=== PATIENT | male | born 1970 | race African-American/Black ===

== ENCOUNTER 2019-05-03 19:38 | Emergency (ER) | payer SELFPAY ==
[~2019-05-03] VITALS: Ht 177.8 cm; Wt 83.9 kg
--- NOTE | 2019-05-03 20:09 | PHYS DOC ---
Adult General Chief Complaint Chief Complaint: HIP PAIN HPI HPI Patient is a 48 year old male who presents with right groin pain after walking yesterday. The patient states he was walking over a curb and call his toe on the curb and after that he started having right groin pain. Patient states his pain is 10 out of 10 in severity, and has not taken any medicines for this at home. However has been using a cane today to help him walk. Review of Systems Review of Systems Constitutional: Denies fever or chills [] Eyes: Denies change in visual acuity, redness, or eye pain [] HENT: Denies nasal congestion or sore throat [] Respiratory: Denies cough or shortness of breath [] Cardiovascular: No additional information not addressed in HPI [] GI: Denies abdominal pain, nausea, vomiting, bloody stools or diarrhea [] : Denies dysuria or hematuria [] Musculoskeletal: Reports R groin pain after walking. Integument: Denies rash or skin lesions [] Neurologic: Denies headache, focal weakness or sensory changes [] Endocrine: Denies polyuria or polydipsia [] Complete systems were reviewed and found to be within normal limits, except as documented in this note. Current Medications Current Medications Current Medications Medications (Trade) Dose Ordered Sig/Ynes Start Time Stop Time Status Last Admin Dose Admin Ketorolac Tromethamine (Toradol Im) 30 mg 1X ONCE 05/03/19 20:15 05/03/19 20:22 DC 05/03/19 20:27 30 MG Orphenadrine Citrate (Norflex) 60 mg 1X ONCE 05/03/19 20:15 05/03/19 20:22 DC 05/03/19 20:26 60 MG Allergies Allergies Allergies Coded Allergies Type Severity Reaction Last Updated Verified No Known Drug Allergies 05/03/19 No Physical Exam Physical Exam Constitutional: Well developed, well nourished, no acute distress, non-toxic jazmyn earance. [] HENT: Normocephalic, atraumatic, bilateral external ears normal, oropharynx moist, no oral exudates, nose normal. [] Eyes: PERRLA, EOMI, conjunctiva normal, no discharge. [] Neck: Normal range of motion, no tenderness, supple, no stridor. [] Cardiovascular:Heart rate regular rhythm, no murmur [] Lungs & Thorax: Bilateral breath sounds clear to auscultation [] Abdomen: Bowel sounds normal, soft, no tenderness, no masses, no pulsatile masses. [] Skin: Warm, dry, no erythema, no rash. [] Back: No tenderness, no CVA tenderness. [] Extremities: R groin pain. Neurologic: Alert and oriented X 3, normal motor function, normal sensory function, no focal deficits noted. [] Psychologic: Affect normal, judgement normal, mood normal. [] Current Patient Data Vital Signs Vital Signs Date Time Temp Pulse Resp B/P (MAP) Pulse Ox O2 Delivery O2 Flow Rate FiO2 05/03/19 19:52 98.5 91 17 118/71 (87) 97 Room Air 98.5 EKG EKG [] Radiology/Procedures Radiology/Procedures [] Course & Med Decision Making Course & Med Decision Making Pertinent Labs and Imaging studies reviewed. (See chart for details) Sounds musculoskeletal related with the story. Did not fall, no trauma. Will order Toradol, and Norflex IM. Patient is feeling better after medications will d/c home. Dragon Disclaimer Dragon Disclaimer This electronic medical record was generated, in whole or in part, using a voice recognition dictation system. Departure Departure Impression: Primary Impression: Musculoskeletal pain of right lower extremity Disposition: HOME, SELF-CARE Condition: STABLE Patient Instructions: Musculoskeletal Pain Additional Instructions: Thank you for visiting [facility]. We appreciate you trusting us with your care. If any additional problems come up don't hesitate to return to visit us. Please follow up with your primary care provider so they can plan additional care if needed and know about the problem that you had. If symptoms worsen come back to the Emergency Department. Any concerning symptoms that start such as chest pain, shortness of air, weakness or numbness on one side of the body, running high fevers or any other concerning symptoms return to the ER. Please fill your medications at any pharmacy and follow the prescription instructions. Scripts Orphenadrine Citrate (ORPHENADRINE CITRATE) 100 Mg Tablet.er 1 TAB PO BID, #30 TAB Prov: MASON JOHNSON APRN 05/03/19 MASON JOHNSON APRN May 03, 2019 20:09
[2019-05-03] MEDS ORDERED: KETOROLAC 60 MG/2 ML VIAL. IM ONE (20:15)
[2019-05-03] MEDS ORDERED: ORPHENADRINE CITRATE 60 MG/2 ML VIAL. IM ONE (20:15)
[2019-05-03] MEDS ORDERED: ORPH100T PO (21:15)
[2019-05-03 21:27] VITALS: BP 124/72
== END 2019-05-03 21:29 | disposition home or self-care (01) ==
LOC: ER 19:38
DX: M79.604 Pain in right leg (principal); R10.31 Right lower quadrant pain
CPT/HCPCS: 96372; 99284; J1885; J2360